=== PATIENT | female | born 1980 | race Two or more races ===

== ENCOUNTER 2021-09-10 08:42 | Emergency (ER) | payer MEDICAID ==
[~2021-09-10] VITALS: Ht 157.5 cm; Wt 91.6 kg
[2021-09-10 09:40] LABS: Basophils # (auto) 0.1 10 ^3/uL (0-0.2); Hemoglobin 8.3 g/dL (12.2-16.2); Monocytes # (auto) 0.5 10 ^3/uL (0-1.3)
[2021-09-10 09:40] LABS: Urine Bacteria FEW /hpf (None Seen); Urine Blood Negative /uL (Negative); Urine Hyaline Cast FEW /lpf (0 - 2); Urine Mucus FEW (None Seen); Urine Specific Gravity 1.034 (1.001-1.035); Urine WBC 4 /hpf (0 - 5)
[2021-09-10 09:42] LABS: Basophils % (auto) 1.1 % (0.0-2.0); Eosinophils # (auto) 0.1 10 ^3/uL (0-0.8); Eosinophils % (auto) 0.9 % (0.0-7.0); Hematocrit 25.9 % (36.0-46.0); Lymphocytes # (auto) 2.9 10 ^3/uL (0.4-5.4); Lymphocytes % (auto) 40.5 % (10.0-50.0); Mean Corpuscular Hemoglobin 22.7 pg (28.0-32.0); Mean Corpuscular Hgb Conc. 32.2 g/dL (32.0-36.0); Mean Corpuscular Volume 70.3 fL (80.0-100.0); Monocytes % (auto) 6.4 % (0.0-12.0); Neutrophils # (auto) 3.6 10 ^3/uL (1.6-8.6); Neutrophils % (auto) 51.1 % (37.0-80.0); Nucleated Red Blood Cells % 0.1 %; Red Blood Cells 3.68 10^6/uL (4.0-5.20); Red Cell Distribution Width 17.9 % (11.8-14.3)
[2021-09-10 09:59] LABS: Albumin 2.9 g/dL (3.4-5.0); Calcium 8.5 mg/dL (8.5-10.1); Potassium 3.6 mmol/L (3.5-5.1)
[2021-09-10 10:03] LABS: BUN/Creatinine Ratio 18.6; Bilirubin, Total 0.6 mg/dL (0.2-1.0); Total Protein 7.7 g/dL (6.4-8.2)
[2021-09-10] MEDS ORDERED: NITR-87 PO (10:43)
[2021-09-10] MEDS ORDERED: TRAM50TA2 PO (10:43)
[2021-09-10] MEDS ORDERED: traMADol HCL 50 MG TAB PO ONE (10:45)
[2021-09-10 11:03] VITALS: BP 146/88
== END 2021-09-10 11:05 | disposition home or self-care (01) ==
LOC: ER 08:42
DX: N39.0 Urinary tract infection, site not specified (principal); M79.7 Fibromyalgia; D64.9 Anemia, unspecified; Z79.899 Other long term (current) drug therapy
CPT/HCPCS: 36415; 80053; 81001; 85025